=== PATIENT | male | born 1965 | race Caucasian/White ===

== ENCOUNTER 2017-09-14 13:56 | Emergency (ER) | payer MEDICAID ==
[~2017-09-14] VITALS: Ht 177.8 cm; Wt 92.7 kg
[~2017-09-14 13:56] MED LIST: OMEP10CA4 PO
[2017-09-14] MEDS ORDERED: HYDROcodone/APAP 5/325 TABLET ONE (15:53)
[2017-09-14] MEDS ORDERED: HYDROcodone/APAP 5/325 TABLET PO ONE (16:00)
[2017-09-14 16:33] VITALS: BP 116/78
== END 2017-09-14 16:36 | disposition home or self-care (01) ==
LOC: ED 16:30
DX: S40.021A Contusion of right upper arm, initial encounter (principal); S90.02XA Contusion of left ankle, initial encounter; S70.11XA Contusion of right thigh, initial encounter; V23.4XXA Motorcycle driver injured in collision with car, pick-up truck or van in traffic accident, initial encounter; Y93.89 Activity, other specified; Y92.89 Other specified places as the place of occurrence of the external cause; Y99.8 Other external cause status
CPT/HCPCS: 99284

== ENCOUNTER 2017-10-23 10:23 | Emergency (ER) | payer MEDICAID ==
[~2017-10-23] VITALS: Ht 177.8 cm; Wt 93.7 kg
[2017-10-23 10:25] VITALS: BP 133/88
[2017-10-23] MEDS ORDERED: KETOROLAC 30 MG/1 ML ONE (11:15)
[2017-10-23] MEDS ORDERED: KETOROLAC 30 MG/1 ML IVPush ONE (11:30)
[2017-10-23] MEDS ORDERED: KETOROLAC 30 MG/1 ML IM ONE (11:30)
[2017-10-23 12:30] LABS: BASOPHILS # (AUTO) 0.03 x10^3/uL (0-0.1); BASOPHILS % (AUTO) 1 % (0-1); EOSINOPHILS % (AUTO) 3 % (1-7); LYMPHOCYTES # (AUTO) 1.77 x10^3/uL (1-3.4); LYMPHOCYTES % (AUTO) 28 % (22-44); MD NO; MEAN CORPUSCULAR HEMOGLOBIN 32.7 pg (27.5-34.5); MEAN CORPUSCULAR HGB CONC 34.7 g/dL (33.2-36.2); MEAN CORPUSCULAR VOLUME 94.2 fL (81-97); MEAN PLATELET VOLUME 7.5 fL (7.4-10.4); MONOCYTES # (AUTO) 0.57 x10^3/uL (0.2-0.8); MONOCYTES % (AUTO) 9 % (2-9); NEUTROPHILS # (AUTO) 3.86 x10^3/uL (1.8-6.8); NEUTROPHILS % (AUTO) 60 % (42-75); PLATELET COUNT 245 x10^3/uL (130-400); RED BLOOD COUNT 4.81 x10^6/uL (4.38-5.82); RED CELL DISTRIBUTION WIDTH 12.4 % (9.4-14.8)
[2017-10-23 12:39] LABS: ALBUMIN 3.7 g/dL (3.4-5.0); ANION GAP 6 mmol/L (5-15); CALCIUM 8.9 mg/dL (8.5-10.1); CHLORIDE 111 mmol/L (98-107); CREATININE 0.83 mg/dL (0.7-1.3)
[2017-10-23] MEDS ORDERED: OMNIPAQUE 350 MG/ML, 75ML BOTTLE ONE (13:12)
== END 2017-10-23 14:01 | disposition home or self-care (01) ==
LOC: ED 14:00
DX: K08.89 Other specified disorders of teeth and supporting structures (principal)
CPT/HCPCS: 36415; 70487; 80048; 82040; 85025; 96374; 99285; J1885; Q9967

== ENCOUNTER 2017-12-14 07:25 | Emergency (ER) | payer MEDICAID ==
[~2017-12-14] VITALS: Ht 177.8 cm; Wt 98.0 kg
[2017-12-14] MEDS ORDERED: OXYcodone/APAP 5/325MG TABLET ONE ×2 (07:55→13:59)
[2017-12-14] MEDS ORDERED: OXYcodone/APAP 5/325MG TABLET PO ONE ×2 (08:00→14:00)
[2017-12-14 12:37] VITALS: BP 127/87
[2017-12-15] MEDS ORDERED: oxycodone (13:03)
== END 2017-12-14 15:34 | disposition home or self-care (01) ==
LOC: ED 08:15
DX: S82.135A Nondisplaced fracture of medial condyle of left tibia, initial encounter for closed fracture (principal); S82.125A Nondisplaced fracture of lateral condyle of left tibia, initial encounter for closed fracture; G89.11 Acute pain due to trauma; V28.9XXA Unspecified motorcycle rider injured in noncollision transport accident in traffic accident, initial encounter; Y93.89 Activity, other specified; Y92.89 Other specified places as the place of occurrence of the external cause; Y99.8 Other external cause status
CPT/HCPCS: 29505; 93922; 99284

== ENCOUNTER 2017-12-15 11:43 | Emergency (ER) | payer MEDICAID ==
[~2017-12-15] VITALS: Ht 177.8 cm; Wt 97.7 kg
[2017-12-15] MEDS ORDERED: SODIUM CHLORIDE FLUSH 10ML SYR IVF ONE ×2 (12:00→13:00)
[2017-12-15 12:38] LABS: BASOPHILS # (AUTO) 0.05 x10^3/uL (0-0.1); BASOPHILS % (AUTO) 0 % (0-1); EOSINOPHILS # (AUTO) 0.26 x10^3/uL (0-0.4); EOSINOPHILS % (AUTO) 3 % (1-7); LYMPHOCYTES # (AUTO) 1.63 x10^3/uL (1-3.4); LYMPHOCYTES % (AUTO) 15 % (22-44); MD NO; MEAN CORPUSCULAR HEMOGLOBIN 32.5 pg (27.5-34.5); MEAN CORPUSCULAR HGB CONC 34.1 g/dL (33.2-36.2); MEAN CORPUSCULAR VOLUME 95.3 fL (81-97); MEAN PLATELET VOLUME 7.5 fL (7.4-10.4); MONOCYTES # (AUTO) 0.49 x10^3/uL (0.2-0.8); MONOCYTES % (AUTO) 5 % (2-9); NEUTROPHILS # (AUTO) 8.34 x10^3/uL (1.8-6.8); NEUTROPHILS % (AUTO) 77 % (42-75); PLATELET COUNT 208 x10^3/uL (130-400); RED BLOOD COUNT 5.02 x10^6/uL (4.38-5.82); RED CELL DISTRIBUTION WIDTH 13.1 % (9.4-14.8)
[2017-12-15 12:51] LABS: ALBUMIN 3.8 g/dL (3.4-5.0); ANION GAP 7 mmol/L (5-15); CALCIUM 8.8 mg/dL (8.5-10.1); CHLORIDE 108 mmol/L (98-107)
[2017-12-15] MEDS ORDERED: METOCLOPRAMIDE 5 MG/ML, 2ML ONE (12:54)
[2017-12-15] MEDS ORDERED: morphine SULFATE 10 MG/ML, 1ML ONE (12:54)
[2017-12-15 12:55] LABS: ALANINE AMINOTRANSFERASE 40 U/L (12-78); ALKALINE PHOSPHATASE 95 U/L (45-117); BILIRUBIN,TOTAL 1.7 mg/dL (0.2-1.0); CREATININE 1.01 mg/dL (0.7-1.3); TOTAL PROTEIN 7.7 g/dL (6.4-8.2)
[2017-12-15] MEDS: MORPHINE SULFATE 4 MG/ML, 1ML IVPush PRN ×2 (12:56→13:23)
[2017-12-15] MEDS ORDERED: METOCLOPRAMIDE 5 MG/ML, 2ML IVPush ONE (13:00)
[2017-12-15] MEDS ORDERED: oxycodone (13:03)
[2017-12-15] MEDS ORDERED: OMNIPAQUE 350 MG/ML, 100ML BOTTLE ONE (13:54)
[2017-12-15] MEDS ORDERED: HYDROmorphone 1 MG/ML, 1ML ONE ×2 (14:28→15:36)
[2017-12-15] MEDS ORDERED: HYDROmorphone 1 MG/ML, 1ML IV ONE (14:30)
[2017-12-15 15:45] VITALS: BP 129/86
[2017-12-15] MEDS ORDERED: HYDROmorphone 1 MG/ML, 1ML IVPush PRN (16:00)
== END 2017-12-15 15:47 | disposition short-term general hospital (02) ==
LOC: ED 14:22
DX: S36.039A Unspecified laceration of spleen, initial encounter (principal); Z87.442 Personal history of urinary calculi; V89.2XXA Person injured in unspecified motor-vehicle accident, traffic, initial encounter; Y93.89 Activity, other specified; Y92.488 Other paved roadways as the place of occurrence of the external cause; Y99.8 Other external cause status
CPT/HCPCS: 36415; 74177; 80053; 85025; 96374; 96375; 96376; 99285; J1170; J2765; Q9967

== ENCOUNTER 2021-01-11 17:44 | Emergency (ER) | payer MEDICAID, OTHER ==
[~2021-01-11] VITALS: Ht 177.8 cm; Wt 91.0 kg
[~2021-01-11 17:44] MED LIST changes: -OMEP10CA4 PO; +OMEP10CA5 PO; +oxycodone
--- NOTE | 2021-01-11 18:55 | NUR ---
PT PRESENTS WITH LAC TO FORHEAD ABOVE LEFT EYE. PT STATES HIS VISION IN THAT EYE IS ONLY BLURRY WHEN HE FIRST OPENS HIS EYE. PT STATES IT CLEARS UP AFTER A FEW BLINKS. PT IN GOWN, HOOKED TO MONITOR, RESTING ON Plerts.
[2021-01-11] MEDS ORDERED: LIDOCAINE-MPF 1%, 5ML ONE (19:19)
[2021-01-11] MEDS ORDERED: DIPH,PERTUSS(ACELL),TET VAC/PF 0.5 ML IM-VACC ONE ×2 (19:20→19:30)
[2021-01-11] MEDS ORDERED: LIDOCAINE-MPF 1%, 5ML INFIL ONE (19:30)
--- NOTE | 2021-01-11 19:30 | NUR ---
ERP AT BEDSIDE PLACEING SUTURES. PT RESTING ON VERÓNICA
[2021-01-11 20:04] VITALS: BP 107/71
== END 2021-01-11 20:06 | disposition home or self-care (01) ==
LOC: ED 19:55
DX: S01.81XA Laceration without foreign body of other part of head, initial encounter (principal); X58.XXXA Exposure to other specified factors, initial encounter; Y93.89 Activity, other specified; Y92.89 Other specified places as the place of occurrence of the external cause; Y99.8 Other external cause status
CPT/HCPCS: 90471; 90715